=== PATIENT | male | born 1960 | race Asian ===

== ENCOUNTER 2016-09-27 09:07 | Emergency (ER) | payer OTHER ==
[2016-09-27 09:57] LABS: BASOPHIL % 0.9 % (0-2); PLATELET COUNT 268 x10^3mcL (130-400); RED CELL DISTRIBUTION WIDTH 14.2 % (11.5-14.5)
[2016-09-27 10:04] LABS: CALCIUM 8.8 mg/dL (8.5-10.1); CARBON DIOXIDE 25.5 mmol/L (21-32); CREATININE SERUM 1.4 mg/dL (0.7-1.3); POTASSIUM SERUM 4.6 mmol/L (3.5-5.1)
[2016-09-27 10:09] LABS: BILIRUBIN TOTAL 0.74 mg/dL (0.20-1.00)
[2016-09-27 11:48] VITALS: BP 123/72
== END 2016-09-27 11:48 | disposition home or self-care (01) ==
LOC: ED 09:07
PROVIDERS: Emergency Medicine
DX: R10.84 Generalized abdominal pain (principal); I10 Essential (primary) hypertension; E11.9 Type 2 diabetes mellitus without complications; Z79.899 Other long term (current) drug therapy
CPT/HCPCS: 83880; J1885; J3010; J7030